=== PATIENT | male | born 1980 | race Caucasian/White ===

== ENCOUNTER 2016-12-07 22:33 | Emergency (ER) | payer SELFPAY ==
[~2016-12-07] VITALS: Ht 170.2 cm; Wt 97.5 kg
[2016-12-07 22:35] VITALS: BP 148/95
[2016-12-07] MEDS ORDERED: ASPIRIN 81 MG TAB.CHEW PO ONE (23:15)
[2016-12-07 23:32] LABS: BASO # 0.1 x10^3/uL (0.0-0.2); BASO % 1 % (0-3); EOS # 0.4 x10^3/uL (0.0-0.7); EOS % 4 % (0-3); HEMATOCRIT 44.5 % (39.0-53.0); HEMOGLOBIN 15.4 g/dL (13.0-17.5); LYMPH # 3.2 x10^3/uL (1.0-4.8); LYMPH % 38 % (24-48); MEAN CORPUSCULAR HEMOGLOBIN 29 pg (25-35); MEAN CORPUSCULAR HGB CONC 35 g/dL (31-37); MEAN CORPUSCULAR VOLUME 85 fL (79-100); MONO # 0.6 x10^3/uL (0.0-1.1); MONO % 7 % (0-9); NEUT # 4.2 x10^3uL (1.8-7.7); NEUT % 50 % (31-73); PLATELET COUNT 267 x10^3/uL (140-400); RED BLOOD COUNT 5.24 x10^6/uL (4.30-5.70); RED CELL DISTRIBUTION WIDTH 13.1 % (11.5-14.5); WHITE BLOOD COUNT 8.4 x10^3/uL (4.0-11.0)
[2016-12-07 23:44] LABS: ALBUMIN 3.9 g/dL (3.4-5.0); ALBUMIN/GLOBULIN RATIO 1.1 (1.0-1.7); CREATININE 0.8 mg/dL (0.7-1.3); GFR 108.2; POTASSIUM 3.5 mmol/L (3.5-5.1); TOTAL BILIRUBIN 0.5 mg/dL (0.2-1.0); TOTAL PROTEIN 7.4 g/dL (6.4-8.2)
--- NOTE | 2016-12-08 00:43 | PHYS DOC ---
Past History Past Medical History: No Pertinent History Past Surgical History: No Surgical History Smoking: Non-smoker Alcohol Use: None Drug Use: None Adult General Chief Complaint Chief Complaint: CHEST PAIN HPI HPI 36-year-old male with no prior cardiac workup now complaining of left-sided chest soreness reproducible with palpation and movement. Patient has no exertional chest pain. No productive cough or fever. Denies pleuritic pain. He' s never been a smoker but he has been told he had high blood pressure before however sometimes it's normal. He's not currently treated for blood pressure. He has no high cholesterol diabetes or family history of coronary artery disease under 55 years old. No history of sudden cardiac . No other complaints Review of Systems Review of Systems Constitutional: Denies fever or chills [] Eyes: Denies change in visual acuity, redness, or eye pain [] HENT: Denies nasal congestion or sore throat [] Respiratory: Denies cough or shortness of breath [] Cardiovascular: No additional information not addressed in HPI [] GI: Denies abdominal pain, nausea, vomiting, bloody stools or diarrhea [] : Denies dysuria or hematuria [] Musculoskeletal: Denies back pain or joint pain [] Integument: Denies rash or skin lesions [] Neurologic: Denies headache, focal weakness or sensory changes [] Endocrine: Denies polyuria or polydipsia [] Current Medications Current Medications Current Medications Medications (Trade) Dose Ordered Sig/[facility] Start Time Stop Time Status Last Admin Dose Admin Aspirin (Children'S Aspirin) 324 mg 1X ONCE 12/07/16 23:15 12/07/16 23:16 DC 12/07/16 23:24 324 MG Allergies Allergies Allergies Coded Allergies Type Severity Reaction Last Updated Verified No Known Drug Allergies 12/07/16 No Physical Exam Physical Exam Well-appearing 36-year-old male no acute distress easily reproducible chest wall tenderness no bony tenderness clear lungs regular rate and rhythm no tachycardia benign abdomen remainder of exam is benign. Constitutional: Well developed, well nourished, no acute distress, non-toxic appearance. [] HENT: Normocephalic, atraumatic, bilateral external ears normal, oropharynx moist, no oral exudates, nose normal. [] Eyes: PERRLA, EOMI, conjunctiva normal, no discharge. [] Neck: Normal range of motion, no tenderness, supple, no stridor. [] Cardiovascular:Heart rate regular rhythm, no murmur left chest wall with easily reproducible and numbness with light palpation. No skin changes. No crepitus. No bony tenderness. Normal pectoral muscle distribution. Lungs & Thorax: Bilateral breath sounds clear to auscultation [] Abdomen: Bowel sounds normal, soft, no tenderness, no masses, no pulsatile masses. [] Skin: Warm, dry, no erythema, no rash. [] Back: No tenderness, no CVA tenderness. [] Extremities: No tenderness, no cyanosis, no clubbing, ROM intact, no edema. [] Neurologic: Alert and oriented X 3, normal motor function, normal sensory function, no focal deficits noted. [] Psychologic: Affect normal, judgement normal, mood normal. [] Current Patient Data Vital Signs Vital Signs Date Time Temp Pulse Resp B/P (MAP) Pulse Ox O2 Delivery O2 Flow Rate FiO2 12/07/16 22:35 97.6 89 20 97 Room Air Lab Results Laboratory Tests Test 12/07/16 23:20 White Blood Count 8.4 x10^3/uL (4.0-11.0) Red Blood Count 5.24 x10^6/uL (4.30-5.70) Hemoglobin 15.4 g/dL (13.0-17.5) Hematocrit 44.5 % (39.0-53.0) Mean Corpuscular Volume 85 fL (79-100) Mean Corpuscular Hemoglobin 29 pg (25-35) Mean Corpuscular Hemoglobin Concent 35 g/dL (31-37) Red Cell Distribution Width 13.1 % (11.5-14.5) Platelet Count 267 x10^3/uL (140-400) Neutrophils (%) (Auto) 50 % (31-73) Lymphocytes (%) (Auto) 38 % (24-48) Monocytes (%) (Auto) 7 % (0-9) Eosinophils (%) (Auto) 4 % (0-3) H Basophils (%) (Auto) 1 % (0-3) Neutrophils # (Auto) 4.2 x10^3uL (1.8-7.7) Lymphocytes # (Auto) 3.2 x10^3/uL (1.0-4.8) Monocytes # (Auto) 0.6 x10^3/uL (0.0-1.1) Eosinophils # (Auto) 0.4 x10^3/uL (0.0-0.7) Basophils # (Auto) 0.1 x10^3/uL (0.0-0.2) Sodium Level 140 mmol/L (136-145) Potassium Level 3.5 mmol/L (3.5-5.1) Chloride Level 102 mmol/L (98-107) Carbon Dioxide Level 29 mmol/L (21-32) Anion Gap 9 (6-14) Blood Urea Nitrogen 14 mg/dL (8-26) Creatinine 0.8 mg/dL (0.7-1.3) Estimated GFR (Cockcroft-Gault) 108.2 BUN/Creatinine Ratio 18 (6-20) Glucose Level 116 mg/dL (70-99) H Calcium Level 9.0 mg/dL (8.5-10.1) Total Bilirubin 0.5 mg/dL (0.2-1.0) Aspartate Amino Transferase (AST) 22 U/L (15-37) Alanine Aminotransferase (ALT) 54 U/L (16-63) Alkaline Phosphatase 118 U/L (46-116) H Troponin I Quantitative < 0.017 ng/mL (0-0.055) Total Protein 7.4 g/dL (6.4-8.2) Albumin 3.9 g/dL (3.4-5.0) Albumin/Globulin Ratio 1.1 (1.0-1.7) EKG EKG EKG with normal sinus rhythm at 87 normal axis no STEMI interpreted by me[] Radiology/Procedures Radiology/Procedures Chest x-ray no acute disease interpreted by me. Course & Med Decision Making Course & Med Decision Making Pertinent Labs and Imaging studies reviewed. (See chart for details) Signs and symptoms consistent with easily reproducible chest wall pain in a patient with the only cardiac risk factors as maleness and hypertension. Patient has had elevated blood pressure before but on reevaluation prior to discharge his blood pressure normalized. Chest x-ray and EKG benign. Laboratory workup negative. Patient with no clinical evidence of acute coronary syndrome and his heart score is 1. No further workup or treatment indicated. Patient agrees with outpatient follow-up and strict return precautions given. Recommended that patient follow up with his primary care doctor to discuss outpatient stress test Dragon Disclaimer Dragon Disclaimer This chart was dictated in whole or in part using Voice Recognition software in a busy, high-work load, and often noisy Emergency Department environment. It may contain unintended and wholly unrecognized errors or omissions. Departure Departure: Impression: Primary Impression: Chest wall pain Disposition: 01 HOME, SELF-CARE Condition: GOOD Referrals: PCP,NO (PCP) Patient Instructions: Chest Wall Pain, [id number] Additional Instructions: You have chest wall soreness. Take ibuprofen 800 mg every 6 hours. Do warm soaks and gentle stretches. Follow-up with your doctor tomorrow for reevaluation and to discuss whether an outpatient stress test might be appropriate for you and when that might be indicated given your specific risk factor profile. Take 81 mg of aspirin daily and follow-up with your doctor. Return immediately for new severe worsening symptoms STACEY SINGH MD Dec 08, 2016 00:43
--- NOTE | 2016-12-08 04:15 | EKG ---
[address] [address] Test Date: 2016-12-07 Test Time: 22:45:08 Pat Name: ZANE MOSS Department: Room: Gender: M Occupational Therapy Assist: ELIZ : 1980 Requested By: STACEY SINGH Order Number: [id number] Reading MD: Shaun Leal Measurements Intervals [place] Rate: 87 P: 0 SC: 140 QRS: 11 QRSD: 90 T: 23 QT: 350 QTc: 427 Interpretive Statements SINUS RHYTHM NON-SPECIFIC ST/T CHANGES Electronically Signed On 12-11-2016 8:21:04 CDT by Shaun Leal
--- NOTE | 2016-12-08 07:57 | RAD ---
PORTABLE CHEST 1V Clinical Indication: Chest pain Comparison: None. Findings: Normal lung volume. No focal consolidation. Normal pulmonary vasculature. No pleural effusion or pneumothorax. The cardiomediastinal silhouette and great vessels are normal. No acute osseous abnormality. IMPRESSION: No acute cardiopulmonary process.
== END 2016-12-08 01:02 | disposition home or self-care (01) ==
LOC: ER 22:33
DX: R07.89 Other chest pain (principal)
CPT/HCPCS: 36415; 71010; 80053; 84484; 85025; 93005; 99285-25

== ENCOUNTER 2019-11-27 15:23 | Emergency (ER) | payer SELFPAY ==
[~2019-11-27] VITALS: Ht 170.2 cm; Wt 114.1 kg
[2019-11-27 15:44] VITALS: BP 194/94
--- NOTE | 2019-11-27 16:20 | RAD ---
Abdominal and Pelvis CT, Without Contrast: History: Reason: KIDNEY STONE, rt sided abdomen and flank pain radiating to pelvis / Spl. Instructions: / History: Comparison: September 22, 2013. Procedure: Axial images are obtained of the abdomen and pelvis, without IV or oral contrast. Oral Contrast: No Findings: Evaluation of solid organs is limited without contrast. Liver: Normal. Spleen: Normal. Pancreas: Normal. Adrenal Glands: There is a 1.3 cm nodule in the left adrenal likely an adrenal adenoma. Kidneys: Normal. There is no free air or free fluid. There is no lymphadenopathy. The urinary bladder appears normal. There is no pericolonic inflammation identified. The appendix is normal. There is fat-containing inguinal canal hernias bilaterally. Impression: No acute findings. End impression PQRS Compliance Statement: One or more of the following individualized dose reduction techniques were utilized for this examination: 1. Automated exposure control 2. Adjustment of the mA and/or kV according to patient size 3. Use of iterative reconstruction technique Electronically signed by: Hayder Ayala III, MD (11/27/2019 4:17 PM) [id number]
[2019-11-27 16:23] LABS: BILIRUBIN,URINE NEG (NEG); CLARITY,URINE CLEAR; COLOR,URINE YELLOW; GLUCOSE,URINE NEG (NEG); NITRITE,URINE NEG (NEG); UROBILINOGEN,URINE 0.2 mg/dL (0.2 mg/dL)
[2019-11-27 16:29] LABS: BACTERIA,URINE FEW /HPF (0-FEW); SQUAMOUS EPITHELIAL CELL,UR OCC /LPF
--- NOTE | 2019-11-28 07:31 | PHYS DOC ---
Past History Past Medical History: Kidney Stones Past Surgical History: No Surgical History Smoking: Non-smoker Alcohol Use: None Drug Use: None General Adult EDM: Chief Complaint: FLANK PAIN HPI: HPI: 39-year-old male with right flank and lower abdominal pain. Pain started 2 days ago it was more severe last night associate with nausea but no emesis. Pain is unchanged with movement or food. Has a history of a kidney stone which she passed without intervention. Denies any urinary changes or testicular pain. Review of Systems: Review of Systems: Constitutional: Denies fever or chills Eyes: Denies change in visual acuity HENT: Denies nasal congestion or sore throat Respiratory: Denies cough or shortness of breath Cardiovascular: Denies chest pain or edema GI: Denies abdominal pain, nausea, vomiting, bloody stools or diarrhea : Denies dysuria, right flank pain Musculoskeletal: Denies back pain or joint pain Integument: Denies rash Neurologic: Denies headache, focal weakness or sensory changes Endocrine: Denies polyuria or polydipsia Lymphatic: Denies swollen glands Psychiatric: Denies depression or anxiety Heart Score: Risk Factors: Risk Factors: DM, Current or recent (<one month) smoker, HTN, HLP, family history of CAD, obesity. Risk Scores: Score 0 - 3: 2.5% MACE over next 6 weeks - Discharge Home Score 4 - 6: 20.3% MACE over next 6 weeks - Admit for Clinical Observation Score 7 - 10: 72.7% MACE over next 6 weeks - Early Invasive Strategies Allergies: Allergies: Allergies Coded Allergies Type Severity Reaction Last Updated Verified No Known Drug Allergies 12/07/16 No Physical Exam: PE: Constitutional: Well developed, well nourished, no acute distress, non-toxic appearance. [] HENT: Normocephalic, atraumatic, bilateral external ears normal, oropharynx moist, no oral exudates, nose normal. [] Eyes: PERRLA, EOMI, conjunctiva normal, no discharge. [] Neck: Normal range of motion, no tenderness, supple, no stridor. [] Cardiovascular:Heart rate regular rhythm, no murmur [] Lungs & Thorax: Bilateral breath sounds clear to auscultation [] Abdomen: Bowel sounds normal, soft, no tenderness, no masses, no pulsatile masses. [] Skin: Warm, dry, no erythema, no rash. [] Back: No tenderness, right CVA tenderness. [] Extremities: No tenderness, no cyanosis, no clubbing, ROM intact, no edema. [] Neurologic: Alert and oriented X 3, normal motor function, normal sensory function, no focal deficits noted. [] Psychologic: Affect normal, judgement normal, mood normal. [] Current Patient Data: Labs: Laboratory Tests Test 11/27/19 15:53 Urine Collection Type Unknown Urine Color Yellow Urine Clarity Clear Urine pH 6.5 Urine Specific [place] 1.025 Urine Protein Neg (NEG-TRACE) Urine Glucose (UA) Neg mg/dL (NEG) Urine Ketones (Stick) Neg mg/dL (NEG) Urine Blood Small (NEG) Urine Nitrite Neg (NEG) Urine Bilirubin Neg (NEG) Urine Urobilinogen Dipstick 0.2 mg/dL (0.2 mg/dL) Urine Leukocyte Esterase Neg (NEG) Urine RBC 3-5 /HPF (0-2) Urine WBC 1-4 /HPF (0-4) Urine Squamous Epithelial Cells Occ /LPF Urine Bacteria Few /HPF (0-FEW) Vital Signs: Vital Signs Date Time Temp Pulse Resp B/P (MAP) Pulse Ox O2 Delivery O2 Flow Rate FiO2 11/27/19 15:44 98.0 110 20 194/94 (127) 96 Room Air EKG: EKG: [] Radiology/Procedures: Radiology/Procedures: Abdominal and Pelvis CT, Without Contrast: History: Reason: KIDNEY STONE, rt sided abdomen and flank pain radiating to pelvis / Spl. Instructions: / History: Comparison: September 22, 2013. Procedure: Axial images are obtained of the abdomen and pelvis, without IV or oral contrast. Oral Contrast: No Findings: Evaluation of solid organs is limited without contrast. Liver: Normal. Spleen: Normal. Pancreas: Normal. Adrenal Glands: There is a 1.3 cm nodule in the left adrenal likely an adrenal adenoma. Kidneys: Normal. There is no free air or free fluid. There is no lymphadenopathy. The urinary bladder appears normal. There is no pericolonic inflammation identified. The appendix is normal. There is fat-containing inguinal canal hernias bilaterally. Impression: No acute findings. [] Course & Med Decision Making: Course & Med Decision Making Pertinent Labs and Imaging studies reviewed. (See chart for details) Discussed no findings with the patient, there was some blood cells in the urine, and discussed the possibility of a already passed kidney stone. [] Dragon Disclaimer: Dragon Disclaimer: This electronic medical record was generated, in whole or in part, using a voice recognition dictation system. Departure Departure: Impression: Primary Impression: Flank pain Disposition: 01 DC HOME SELF CARE/HOMELESS Condition: STABLE Patient Instructions: Flank Pain GEORGIE DURON MD Nov 28, 2019 07:31
== END 2019-11-27 17:30 | disposition home or self-care (01) ==
LOC: ER 15:23
DX: R10.30 Lower abdominal pain, unspecified (principal); R11.0 Nausea; Z87.442 Personal history of urinary calculi
CPT/HCPCS: 74176; 81001; 99284

== ENCOUNTER 2019-12-03 09:18 | Emergency (ER) | payer SELFPAY ==
[~2019-12-03] VITALS: Ht 170.2 cm; Wt 116.0 kg
[2019-12-03 09:18] VITALS: BP 183/83
--- NOTE | 2019-12-03 10:39 | PHYS DOC ---
Past History Past Medical History: Kidney Stones Past Surgical History: No Surgical History Smoking: Non-smoker Alcohol Use: None Drug Use: None Adult General Chief Complaint Chief Complaint: FLANK PAIN HPI HPI Patient is a 39-year-old male who presents with suprapubic pain. Reports this is an acute on chronic problem. Onset was greater than 1 week ago without any known inciting event or trauma. Patient sought care at our ER for this 6 days ago and had unremarkable urine and CT abdomen pelvis performed. Nonetheless, patient has not had significant relief since that time. Continues to have suprapubic discomfort, dysuria, and intermittent right flank pain. Denies any constitutional symptoms, the COVID-19 contact, fevers, chest pain, shortness of breath, vomit or diarrhea, abdominal pain. Patient reports being sexually active with numerous female partners, no known STI contacts, has not been using any protection. Denies any penile discharge or testicular changes per baseline Review of Systems Review of Systems Fourteen body systems of review of systems have been reviewed. See HPI for pertinent positives and negative responses, other mar all other systems are negative, non-pertinent or non-contributory Allergies Allergies Allergies Coded Allergies Type Severity Reaction Last Updated Verified No Known Drug Allergies 12/07/16 No Physical Exam Physical Exam Constitutional: Well developed, well nourished, no acute distress, non-toxic appearance. HENT: Normocephalic, atraumatic, bilateral external ears normal, oropharynx moist, no oral exudates, nose normal. Eyes: PERRLA, EOMI, conjunctiva normal, no discharge. Neck: Normal range of motion, no tenderness, supple, no stridor. Cardiovascular: Heart rate regular, sinus rhythm, no murmurs rubs or gallops Lungs & Thorax: Bilateral breath sounds clear to auscultation Abdomen: Bowel sounds normal, soft, no tenderness, no masses, no pulsatile masses. Nonsurgical abdomen, no peritoneal signs : Suprapubic tenderness on palpation, circumcised penis without any discharge or abnormalities, testicles both descended without any palpable abnormalities or pain, no palpable inguinal hernias bilaterally Skin: Warm, dry, no erythema, no rash. Back: No tenderness, right CVA tenderness. Extremities: No tenderness, no cyanosis, no clubbing, ROM intact, no edema. Neurologic: Alert and oriented X 3, grossly normal motor & sensory function, no focal deficits noted. Psychologic: Affect normal, judgement normal, anxious mood Current Patient Data Vital Signs Vital Signs Date Time Temp Pulse Resp B/P (MAP) Pulse Ox O2 Delivery O2 Flow Rate FiO2 12/03/19 09:18 98.6 81 16 183/83 (116) 99 Room Air Lab Results Laboratory Tests Test 12/03/19 10:09 Urine Collection Type Unknown Urine Color Yellow Urine Clarity Clear Urine pH 5.5 Urine Specific [place] >=1.030 Urine Protein Neg (NEG-TRACE) Urine Glucose (UA) Neg mg/dL (NEG) Urine Ketones (Stick) Neg mg/dL (NEG) Urine Blood Large (NEG) Urine Nitrite Neg (NEG) Urine Bilirubin Neg (NEG) Urine Urobilinogen Dipstick 0.2 mg/dL (0.2 mg/dL) Urine Leukocyte Esterase Neg (NEG) Urine RBC >40 /HPF (0-2) Urine WBC Occ /HPF (0-4) Urine Squamous Epithelial Cells Few /LPF Urine Bacteria 0 /HPF (0-FEW) EKG EKG [] Radiology/Procedures Radiology/Procedures [] Heart Score Risk Factors: Risk Factors: DM, Current or recent (<one month) smoker, HTN, HLP, family history of CAD, obesity. Risk Scores: Risk Factors: DM, Current or recent (<one month) smoker, HTN, HLP, family history of CAD, obesity. Course & Med Decision Making Course & Med Decision Making Well-appearing nontoxic patient seen on arrival ABCs nonconcerning Comprehensive history and physical exam obtained, repeat UA positive for blood yet again I thoroughly reviewed patient's prior charts in addition to CT scan. I had suspicion for kidney stone, I reviewed images with on-call radiologist who confirmed my suspicion finding right-sided 2 mm stone I disclose this with patient that symptoms are likely due to an passed stone. I advised supportive care with Flomax and pain medications as needed with outpatient PCP follow-up and urologist follow-up I also disclosed this might be an acute presentation more concerning pathology and as such, close outpatient follow-up is advised Strict return precautions were discussed with good understanding by patient, all questions and concerns addressed prior to ER departure in stable condition Dragon Disclaimer Dragon Disclaimer This electronic medical record was generated, in whole or in part, using a voice recognition dictation system. Departure Departure: Impression: Primary Impression: Right kidney stone Disposition: 01 DC HOME SELF CARE/HOMELESS Condition: STABLE Referrals: PCP,HERRERA (PCP) Patient Instructions: Kidney Stones Additional Instructions: As instructed prior to ER discharge, please use attached sheet to schedule follow-up appointment with outpatient PCP in upcoming 3 to 10 days time If symptoms do not resolve with supportive treatment there might be indication for outpatient urology follow-up If concerning signs or symptoms represent themselves prior to outpatient follow- up please do not hesitate to represent for repeat evaluation It was a pleasure to take care of you today and I wish you a speedy recovery Scripts Tamsulosin Hcl (FLOMAX) 0.4 Mg Cap.er.24h 1 CAP PO DAILY for KIDNEY STONE, #30 CAP 11 Refills Prov: IHSAN MORA DO 12/03/19 Hydrocodone Bit/Acetaminophen (NORCO 5-325 TABLET) 1 Each Tablet 1 TAB PO TID for SEVERE PAIN, #9 TAB Prov: IHSAN MORA DO 12/03/19 IHSAN MORA DO Dec 03, 2019 10:39
[2019-12-03 10:45] LABS: BACTERIA,URINE 0 /HPF (0-FEW); BILIRUBIN,URINE NEG (NEG); CLARITY,URINE CLEAR; COLOR,URINE YELLOW; GLUCOSE,URINE NEG (NEG); NITRITE,URINE NEG (NEG); RBC,URINE >40 /HPF (0-2); SQUAMOUS EPITHELIAL CELL,UR FEW /LPF; UROBILINOGEN,URINE 0.2 mg/dL (0.2 mg/dL); WBC,URINE OCC /HPF (0-4)
[2019-12-03] MEDS ORDERED: HYDR-3165 PO (11:18)
[2019-12-03] MEDS ORDERED: TAMS0.4C97 PO (11:18)
[2019-12-03] MEDS ORDERED: TAMSULOSIN 0.4 MG CAP.ER.24H. PO ONE (11:30)
[2019-12-03] MEDS ORDERED: HYDROcodone/APAP 5/325MG 1 TAB TABLET PO ONE (11:30)
== END 2019-12-03 11:31 | disposition home or self-care (01) ==
LOC: ER 09:18
DX: N20.0 Calculus of kidney (principal); R30.0 Dysuria
CPT/HCPCS: 36415; 81001; 87491; 87591; 99283

== ENCOUNTER 2021-04-22 09:28 | Emergency (ER) | payer OTHER ==
[~2021-04-22] VITALS: Ht 170.2 cm; Wt 116.0 kg
[~2021-04-22 09:28] MED LIST: HYDR-3165 PO; TAMS0.4C97 PO
[2021-04-22 09:41] VITALS: BP 127/69
[2021-04-22] MEDS ORDERED: ONDANSETRON PF 4 MG/2 ML VIAL. IVP ONE (09:45)
[2021-04-22] MEDS ORDERED: IV NORMAL SALINE 1,000ML 1,000 ML IV ONE (09:45)
[2021-04-22] MEDS ORDERED: FAMOTIDINE 20 MG/2 ML VIAL IVP ONE (09:45)
--- NOTE | 2021-04-22 10:00 | PHYS DOC ---
Past History Past Medical History: Kidney Stones Past Surgical History: No Surgical History Smoking: Non-smoker Alcohol Use: None Drug Use: None General Adult EDM: Chief Complaint: NAUSEA/VOMITING/DIARRHEA HPI: HPI: 41-year-old male who denies any significant past medical history, presents to the ED with complaints of stomach cramps (points to epigastric and left upper quadrant), vomiting, chills, loose watery diarrhea and feeling sick, that started around 330 this morning. Reports he worked last night. Drank alcohol 3 days ago. States his boss had similar symptoms 2 weeks ago. States " I have never vomited this much before and want to get checked out. I had to leave work this morning. I think it's a bug." Reports no cocaine, or illicit drug use. No past surgical history. Is not vaccinated for Covid or influenza. Cannot recall eating poorly prepared food or water. Review of Systems: Review of Systems: Constitutional: Denies fever or confusion Eyes: Denies change in visual acuity HENT: Denies nasal congestion or sore throat Respiratory: Denies cough or shortness of breath Cardiovascular: Denies chest pain or edema GI: Denies melena, hematochezia or hematemesis : Denies dysuria or hematuria Musculoskeletal: Denies back pain or joint pain Integument: Denies rash or diaphoresis Neurologic: Denies headache or neck stiffness Endocrine: Denies polyuria or polydipsia Lymphatic: Denies swollen glands Psychiatric: Denies depression or anxiety Current Medications: Current Meds: Current Medications Medications (Trade) Dose Ordered Sig/Mercedes Start Time Stop Time Status Last Admin Dose Admin Famotidine (Pepcid Vial) 20 mg 1X ONCE 04/22/21 09:45 04/22/21 09:46 DC Ondansetron HCl (Zofran) 4 mg 1X ONCE 04/22/21 09:45 04/22/21 09:46 DC Sodium Chloride 1,000 ml @ 1,000 mls/hr 1X ONCE 04/22/21 09:45 04/22/21 10:44 Allergies: Allergies: Allergies Coded Allergies Type Severity Reaction Last Updated Verified No Known Drug Allergies 12/07/16 No Physical Exam: PE: Constitutional: Well developed, well nourished, no acute distress, non-toxic appearance. HENT: Normocephalic, atraumatic, dry mucous membranes Eyes: EOMI, conjunctiva normal, no discharge. Neck: Normal range of motion, supple, Cardiovascular: S1/2 present, regular rhythm Lungs & Thorax: Speaking in full sentences, bilateral equal chest rise, no tachypnea or increased work of breathing Abdomen: soft, mild epigastric tenderness, no McBurney's point tenderness, no Arguello sign, no rigidity or guarding, no distention, on reevaluation-resting comfortably, no distess, soft abdomen Skin: Warm, dry, no erythema, no rash. [] Extremities: No tenderness, no cyanosis, no lower extremity edema Neurologic: Alert and oriented X 3, normal motor function, normal sensory function, no focal deficits noted. [] Psychologic: Affect normal, judgement normal, mood normal. [] Current Patient Data: Vital Signs: Vital Signs Date Time Temp Pulse Resp B/P (MAP) Pulse Ox O2 Delivery O2 Flow Rate FiO2 04/22/21 09:41 97.5 93 22 127/69 (88) 94 Room Air EKG: EKG: Sinus rhythm 87 bpm, left axis deviation, normal intervals, T wave inversion lead III, no ST elevation or ST depression Radiology/Procedures: Radiology/Procedures: []IMAGING REPORT Signed PATIENT: ZANE MOSS ACCOUNT: [id number] : 1980 LOCATION: ER AGE: 41 SEX: M EXAM STATUS: REG ER ORD. PHYSICIAN: CHRISTINE MURILLO DO REASON: luq abd pain, n/v/d PROCEDURE: CT ABD PELV W/ IV CONTRST ONLY CT scan of the abdomen and pelvis with contrast 04/22/2021 CLINICAL HISTORY: Left upper quadrant abdominal pain. TECHNIQUE: After the intravenous administration of 75 cc of Omnipaque 300 only, contiguous, 5 mm axial sections were obtained through the abdomen and pelvis. One or more of the following individualized dose reduction techniques were utilized for this study: 1. Automated exposure control. 2. Adjustment of the mA and/or kV according to patient size. 3. Use of iterative reconstruction technique. FINDINGS: Comparison study is dated 11/27/2019. Images through the lung bases demonstrate minimal dependent subsegmental atelectasis bilaterally. The liver, spleen, and pancreas are within normal limits. Low-attenuation lesions are seen involving both adrenal glands, left greater than right consistent with adrenal adenomas. These measure 1.5 and 2 cm in size. Rounded low-attenuation lesions are seen involving both kidneys. These measure 3 mm to 5 mm in size. They likely represent cysts. No further imaging evaluation is recommended. The abdominal aorta tapers normally. The gallbladder is well-distended. No free fluid or free air is seen within the abdomen. Mildly dilated fluid-filled small bowel loops are seen throughout the abdomen without definite evidence of bowel obstruction. The appendix is well-visualized and is within normal limits. Images through the pelvis demonstrate the urinary bladder distended with urine. Calcifications are seen within the pelvis consistent with phleboliths. No free fluid is seen. Very mild S-shaped curvature of the thoracolumbar spine is noted. Degenerative changes are seen involving the thoracic and throughout the lumbar spine. IMPRESSION: Mildly dilated fluid-filled small bowel loops are seen throughout the abdomen without definite evidence of bowel obstruction. No acute abnormality is seen. Electronically signed by: Terrence Santos MD (04/22/2021 12:34 PM) [id number] DICTATED AND SIGNED BY: TERRENCE SANTOS MD DATE: 04/22/21 1209 CC: PCP,NO; CHRISTINE MURILLO DO ~MTH0 0 Heart Score: C/O Chest Pain: No Risk Factors: Risk Factors: DM, Current or recent (<one month) smoker, HTN, HLP, family history of CAD, obesity. Risk Scores: Score 0 - 3: 2.5% MACE over next 6 weeks - Discharge Home Score 4 - 6: 20.3% MACE over next 6 weeks - Admit for Clinical Observation Score 7 - 10: 72.7% MACE over next 6 weeks - Early Invasive Strategies Course & Med Decision Making: Course & Med Decision Making Pertinent Labs and Imaging studies reviewed. (See chart for details) Concern for mild abdominal pain/nausea, vomiting and diarrhea. Patient with no bloody emesis or stool. Pain well controlled emergency department. Abdomen soft with no rigidity or distention. Is able to tolerate liquids. CT imaging concerning for mild bowel dilatation, with no evidence of obstruction. Incidental finding of possible adrenal adenomas and renal cysts. CT report printed and given to patient take to his primary care physician to follow-up on these findings. Will discharge home with strict ED return precautions were given for worse abdominal pain, fever, intractable nausea or vomiting.. Encouraged urgent outpatient follow-up with PMD in 1-2 days. Life-threatening processes were considered but are low suspicion at this time, given history, physical exam and ED workup. Pt was educated on all prescription medications and adverse effects. All patient's questions were answered and pt was stable at time of discharge. Life/limb-threatening differential includes but is not limited to, aortic dissection, aortic aneurysm, acute coronary syndrome, surgical abdomen (appendicitis, cholecystitis, ischemic bowel, strangulated hernia, etc), bowel obstruction or volvulus, bladder outlet obstruction, gastrointestinal bleeding, inflammatory bowel disease, peptic ulcer disease, ACS/CAD, sepsis, diverticular disease, ureterolithiasis, nephrolithiasis, ovarian or testicular torsion, ectopic , vaginal hemorrhage, or genitourinary infection. I have spoken with the patient and/or caregivers. I explained the patient's condition, diagnoses and treatment plan based on the information available to me at this time. I have answered the patient and/or caregiver's questions and addressed any concerns. The patient and/or caregivers have a good understanding of patient's diagnosis, condition and treatment plan as can be expected at this point. Vital signs have been stable. Patient's condition is stable and appropriate for discharge from the emergency department. Patient will pursue further outpatient evaluation with primary care physician or other designated or consulting physician as outlined in the discharge instructions. The patient and/or caregivers are agreeable to this plan of care and follow-up instructions have been explained in detail. The patient and/or caregivers have received these instructions in written form and have expressed an understanding of the discharge instructions. The patient and/or caregivers are aware that any significant change of condition or worsening of symptoms should prompt immediate return to this or the closest emergency department or call to 911. Esther Disclaimer: Esther Disclaimer: This electronic medical record was generated, in whole or in part, using a voice recognition dictation system. Departure Departure: Impression: Primary Impression: Dilated bowel Additional Impressions: Abdominal pain Nausea vomiting and diarrhea Adrenal adenoma Renal lesion Disposition: HOME / SELF CARE / HOMELESS Condition: STABLE Referrals: PCP,NO (PCP) Follow up with your pcp regarding CT findings of renal cysts and [phone] OR [facility]-Dr. Aldrich [phone] Patient Instructions: Diarrhea, Nausea and Vomiting Additional Instructions: EMERGENCY DEPARTMENT GENERAL DISCHARGE INSTRUCTIONS Thank you for coming to [facility] (ED) today and trusting us with you care. We trust that you had a positivie experience in our Emergency Department. If you wish to speak to the department management, you may call the director at [phone]. YOUR FOLLOW UP INSTRUCTIONS ARE FOLLOWS: 1. Do you have a private Doctor? If you do not have a private doctor, please ask for a resource list of physicians or clinics that may be able to assist you with follow up care. 2. The Emergency Physician has interpreted your x-rays. The X-Ray specialist will also review them. If there is a change in the findings, you will be notified in 48 hours when at all possible. 3. A lab test or culture has been done, your results will be reviewed and you will be notified if you need a change in treatment. ADDITIONAL INSTRUCTIONS AND INFORMATION: 1. Your care today has been supervised by a physician who is specially trained in emergency care. Many problems require more than one evaluation for a complete diagnosis and treatment. We recommend that you schedule your follow up appointment as recomme nded to ensure complete treatment of you illness or injury. If you are unable to obtain follow up care and continue to have a problem, or if your condition worsens, we recommend that you return to the ED. 2. We are not able to safely determine your condition over the phone nor are we able to give sound medical advice over the phone. For these safety reasons, if you call for medical advice we will ask you to come to the ED for further evaluation. 3. If you have any questions regarding these discharge instructions please call the ED at [phone]. SAFETY INFORMATION: In the interest of safety, wellness, and injury prevention; we encourage you to wear your sealbelt, if you smoke; quite smoking, and we encourage family to use a protective helmet for bicycling and other sporting events that present an increased risk for head injury. IF YOUR SYMPTOMS WORSEN OR NEW SYMPTOMS DEVELOP, OR YOU HAVE CONCERNS ABOUT YOUR CONDITION; OR IF YOUR CONDITION WORSENS WHILE YOU ARE WAITING FOR YOUR FOLLOW UP APPOINTMENT; EITHER CONTACT YOUR PRIMARY CARE DOCTOR, THE PHYSICIAN WHOSE NAME AND NUMBER YOU WERE GIVEN, OR RETURN TO THE ED IMMEDIATELY. Scripts Ondansetron (ONDANSETRON ODT) 4 Mg Tab.rapdis 4 MG PO Q6HRS for Nausea/Vomiting, #15 TAB Prov: CHRISTINE MURILLO DO 04/22/21 CHRISTINE MURILLO DO Apr 22, 2021 10:00
--- NOTE | 2021-04-22 10:03 | RAD ---
EXAM: Chest, single view. HISTORY: Nausea and vomiting. COMPARISON: 12/07/2016 FINDINGS: A frontal view of the chest is obtained. There is no infiltrate, pleural effusion or pneumo thorax. The heart is normal in size. IMPRESSION: No acute pulmonary finding. Electronically signed by: Jackie Chatman MD (04/22/2021 10:01 AM) [facility]
[2021-04-22] MEDS ORDERED: IOHEXOL 300 MG/ML 75 ML VIAL. IV ONE ×2 (10:15→11:45)
--- NOTE | 2021-04-22 10:30 | EKG ---
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
[2021-04-22 10:33] LABS: CALCIUM 9.5 mg/dL (8.5-10.1); CREATININE 0.9 mg/dL (0.7-1.3); GFR 92.1; POTASSIUM 4.3 mmol/L (3.5-5.1)
[2021-04-22 10:39] LABS: ALBUMIN 4.1 g/dL (3.4-5.0); DIRECT BILIRUBIN 0.1 mg/dL (0.0-0.2); TOTAL BILIRUBIN 0.6 mg/dL (0.2-1.0); TOTAL PROTEIN 7.5 g/dL (6.4-8.2)
[2021-04-22 10:53] LABS: INFLUENZA A PATIENT NEGATIVE (NEGATIVE); INFLUENZA B PATIENT NEGATIVE (NEGATIVE)
[2021-04-22 11:03] LABS: BASO # 0.1 x10^3/uL (0.0-0.2); BASO % 0 % (0-3); EOS # 0.1 x10^3/uL (0.0-0.7); EOS % 1 % (0-3); HEMOGLOBIN 16.1 g/dL (13.0-17.5); LYMPH # 0.5 x10^3/uL (1.0-4.8); LYMPH % 3 % (24-48); MEAN CORPUSCULAR HEMOGLOBIN 29 pg (25-35); MEAN CORPUSCULAR HGB CONC 34 g/dL (31-37); MEAN CORPUSCULAR VOLUME 87 fL (79-100); MONO # 0.5 x10^3/uL (0.0-1.1); MONO % 3 % (0-9); NEUT # 13.7 x10^3uL (1.8-7.7); NEUT % 92 % (31-73); PLATELET COUNT 249 x10^3/uL (140-400); RED BLOOD COUNT 5.53 x10^6/uL (4.30-5.70); RED CELL DISTRIBUTION WIDTH 13.5 % (11.5-14.5); WHITE BLOOD COUNT 14.9 x10^3/uL (4.0-11.0)
[2021-04-22] MEDS ORDERED: CONTRAST GIVEN. MC PRN (12:00)
[2021-04-22 12:22] LABS: % ATYL 4 % (0-0); % BANDS 11 % (0-9); % EOS 2 % (0-5); % LYMPHS 7 % (24-48); % MONOS 6 % (0-10); % SEGS 70 % (35-66); PLT ESTIMATE ADEQUATE (ADEQUATE)
--- NOTE | 2021-04-22 12:36 | RAD ---
CT scan of the abdomen and pelvis with contrast 04/22/2021 CLINICAL HISTORY: Left upper quadrant abdominal pain. TECHNIQUE: After the intravenous administration of 75 cc of Omnipaque 300 only, contiguous, 5 mm axia l sections were obtained through the abdomen and pelvis. One or more of the following individualized dose reduction techniques were utilized for this study: 1. Automated exposure control. 2. Adjustment of the mA and/or kV according to patient size. 3. Use of iterative reconstruction technique. FINDINGS: Comparison study is dated 11/27/2019. Images through the lung bases demonstrate minimal dependent subsegmental atelectasis bilaterally. The liver, spleen, and pancreas are within normal limits. Low-attenuation lesions are seen involving both adrenal glands, left greater than right consistent with adrenal adenomas. These measure 1.5 and 2 cm in size. Rounded low-attenuation lesions are seen involving both kidneys. These measure 3 mm to 5 mm in size. They likely represent cysts. No further imaging evaluation is recommended. The abdominal aorta tapers normally. The gallbladder is well-distended. No free fluid or free air is seen within the abdomen. Mildly dilated fluid-filled small bowel loops are seen throughout the abdome n without definite evidence of bowel obstruction. The appendix is well-visualized and is within tiffanie l limits. Images through the pelvis demonstrate the urinary bladder distended with urine. Calcifications are se en within the pelvis consistent with phleboliths. No free fluid is seen. Very mild S-shaped curvature of the thoracolumbar spine is noted. Degenerative changes are seen involving the thoracic and throug hout the lumbar spine. IMPRESSION: Mildly dilated fluid-filled small bowel loops are seen throughout the abdomen without def inite evidence of bowel obstruction. No acute abnormality is seen. Electronically signed by: Terrence Santos MD (04/22/2021 12:34 PM) [id number]
[2021-04-22] MEDS ORDERED: ONDA4TAB12 PO (12:55)
== END 2021-04-22 13:12 | disposition home or self-care (01) ==
LOC: ER 09:28
DX: K31.89 Other diseases of stomach and duodenum (principal); D35.02 Benign neoplasm of left adrenal gland; D35.01 Benign neoplasm of right adrenal gland; N28.9 Disorder of kidney and ureter, unspecified; R11.2 Nausea with vomiting, unspecified; R19.7 Diarrhea, unspecified; Z87.442 Personal history of urinary calculi
CPT/HCPCS: 36415; 71045; 74177; 80048; 80076; 82550; 83690; 84484; 85007; 85025; 87428; 93005; 96361; 96374; 96375; 99285; J2405; J3490; J7030; Q9967